=== PATIENT | female | born 1965 | race Caucasian/White ===

== ENCOUNTER 2018-05-18 18:13 | Emergency (ER) | payer MEDICARE, OTHER ==
[~2018-05-18 18:13] MED LIST: ACET-2247 PO; ASCO-330 PO; CITA-106 PO; DIVA500T52 PO; DOCU100C34 PO; LEVO25TA4 PO; LEVO750T21 PO; MOM30 PO; MULT1CAP32 PO; QUET25TA PO; QUET50XR PO; TOPI25 PO
[2018-05-18 21:42] VITALS: BP 98/62
== END 2018-05-18 21:43 | disposition home or self-care (01) ==
LOC: EMS 18:16
DX: J40 Bronchitis, not specified as acute or chronic (principal); K21.9 Gastro-esophageal reflux disease without esophagitis; E03.9 Hypothyroidism, unspecified; Z88.5 Allergy status to narcotic agent

== ENCOUNTER → 2018-06-01 | Day surgery (SDC) | payer MEDICARE, OTHER ==
[~2018-06-01] MED LIST changes: +FENO145T37 PO; +FURO20 PO; -LEVO750T21 PO; -MOM30 PO; +OMEP20 PO; +PANT40TA25 PO; -QUET25TA PO; +QUET50TA15 PO; -QUET50XR PO; +SCOP1PAT17 TD; +SODIUM CHLORIDE 0.9% 1,000 ML IV ONE
== END | disposition home or self-care (01) ==
LOC: SURGERY 08:02
PROVIDERS: ATTEND Specialist
DX: K26.9 Duodenal ulcer, unspecified as acute or chronic, without hemorrhage or perforation (principal); Z53.8 Procedure and treatment not carried out for other reasons
CPT/HCPCS: J7030

== ENCOUNTER 2018-10-03 08:47 | Day surgery (SDC) | payer MEDICARE, OTHER ==
[~2018-10-03] VITALS: Ht 142.2 cm; Wt 51.4 kg
[2018-10-03] MEDS ORDERED: MIDAZOLAM HCL 2 MG/2 ML VIAL IVP ONE (08:48)
[2018-10-03] MEDS ORDERED: PROPOFOL 1% 20 ML VIAL IVP ONE (08:48)
[2018-10-03] MEDS ORDERED: SODIUM CHLORIDE 0.9% 1,000 ML IV ONE (09:00)
[2018-10-03] MEDS ORDERED: OXYGEN THERAPY IH SCH (20:00)
== END 2018-10-03 13:00 | disposition home or self-care (01) ==
LOC: SURGERY 08:47
PROVIDERS: ATTEND Specialist
DX: K29.50 Unspecified chronic gastritis without bleeding (principal); K44.9 Diaphragmatic hernia without obstruction or gangrene; K22.70 Barrett's esophagus without dysplasia; E78.00 Pure hypercholesterolemia, unspecified; K21.9 Gastro-esophageal reflux disease without esophagitis; Z87.11 Personal history of peptic ulcer disease; Z88.8 Allergy status to other drugs, medicaments and biological substances; H54.7 Unspecified visual loss
CPT/HCPCS: 43239; C1769; J2250; J2704; J7030; 88305; 88312; 88313